=== PATIENT | male | born 1975 | race Caucasian/White ===

== ENCOUNTER 2018-02-18 20:00 | Outpatient (REF) | payer MEDICAID, SELFPAY ==
[2018-02-18 20:35] LABS: ALT 81 U/L (12-78); AST 43 U/L (15-37); Albumin 3.7 g/dL (3.4-5.0); Alkaline Phosphatase 68 U/L (46-116); Anion Gap 7.3 mmol/L (3-11); BUN 17 mg/dL (7-18); Bilirubin, Total 0.7 mg/dL (0.2-1.0); CO2 29.7 mmol/L (21.0-32.0); CREATININE 0.92 mg/dL (0.70-1.30); Calcium 9.1 mg/dL (8.5-10.1); Chloride 102 mmol/L (98-107); Glucose 101 mg/dL (70-100); Potassium 4.1 mmol/L (3.5-5.1); Sodium 139 mmol/L (136-145); Total Protein 6.8 g/dL (6.4-8.2)
== END 2018-02-18 20:20 ==
LOC: NCHCN 20:00
PROVIDERS: PCP Nurse Practitioner Family; Visit Provider Registered Nurse
DX: I10 Essential (primary) hypertension (principal); F10.10 Alcohol abuse, uncomplicated
CPT/HCPCS: 80053

== ENCOUNTER 2018-11-22 11:40 | Outpatient (REF) | payer MEDICAID, SELFPAY ==
[2018-11-22 22:51] LABS: Abs Immature Grans 0.01 k/cumm (0.0-0.09); Absolute Basophil Count 0.02 k/cumm (0.0-0.2); Absolute Eosinophil Count 0.09 k/cumm (0.0-0.7); Absolute Lymphocyte Count 2.01 k/cumm (1.2-3.4); Absolute Monocyte Count 0.98 k/cumm (0.11-0.7); Absolute Neutrophil Count 4.86 k/cumm (1.2-6.7); Basophils % 0.3; Eosinophils % 1.1; HGB 15.6 g/dL (13.5-17.5); Immature Grans % 0.1; Lymphocytes % 25.2; Mean Corp. HGB Concentration 33.9 g/dL (32.0-36.0); Mean Corpuscular Hemoglobin 32.6 pg (27.0-33.0); Mean Corpuscular Volume 96.2 fL (80-95); Mean Platelet Volume 11.8 fL (8.0-11.0); Monocytes % 12.3; Platelet Count 234 x1000/uL (130-400); RBC 4.78 m/cumm (4.50-6.00); RBC Distribution Width 12.2 % (11.8-14.1); White Blood Cell Count 7.97 k/cumm (4.4-10.8)
[2018-11-22 22:57] LABS: TSH (W/Ref FT4) 0.97 uIU/mL (0.36-3.74)
[2018-11-22 23:36] LABS: ESR 8 mm/hr (0-15)
[2018-11-25 11:39] LABS: IgA 274 mg/dL (85-499); Interpretation SEE COMMENTS; Tissue Transglutaminase IgA 1.2 U/mL (<4.0)
== END 2018-11-22 12:00 ==
LOC: NCHCN 11:40
PROVIDERS: PCP Nurse Practitioner Family; Visit Provider Registered Nurse
DX: R19.7 Diarrhea, unspecified (principal)
CPT/HCPCS: 82784; 83516; 85652; 84443; 85025

== ENCOUNTER 2019-05-22 09:50 | Outpatient (REF) | payer MEDICAID, SELFPAY ==
[2019-05-22 22:06] LABS: ALT 161 U/L (16-63); AST 91 U/L (15-37); Alkaline Phosphatase 92 U/L (46-116); Anion Gap 9.9 mmol/L (3-11); BUN 12 mg/dL (7-18); Bilirubin, Total 0.6 mg/dL (0.2-1.0); CO2 26.1 mmol/L (21.0-32.0); CREATININE 0.69 mg/dL (0.70-1.30); Calcium 9.2 mg/dL (8.5-10.1); Chloride 103 mmol/L (98-107); Glucose 90 mg/dL (74-106); Potassium 4.5 mmol/L (3.5-5.1); Sodium 139 mmol/L (136-145); Total Protein 7.2 g/dL (6.4-8.2)
== END 2019-05-22 10:10 ==
LOC: NCHCN 09:50
PROVIDERS: PCP Nurse Practitioner Family; Visit Provider Registered Nurse
DX: I10 Essential (primary) hypertension (principal); R74.8 Abnormal levels of other serum enzymes; F10.10 Alcohol abuse, uncomplicated
CPT/HCPCS: 80053

== ENCOUNTER 2019-11-22 21:18 | Outpatient (REF) | payer MEDICAID, SELFPAY ==
[2019-11-22 20:47] LABS: Abs Immature Grans 0.06 10^3/uL (0.0-0.06); Absolute Basophil Count 0.04 10^3/uL (0.0-0.2); Absolute Eosinophil Count 0.11 10^3/uL (0.0-0.7); Absolute Lymphocyte Count 1.83 10^3/uL (1.2-3.4); Absolute Monocyte Count 0.98 10^3/uL (0.1-0.8); Absolute Neutrophil Count 6.61 10^3/uL (1.2-6.7); Basophils % 0.4; Eosinophils % 1.1; HCT 49.6 % (40.0-50.0); HGB 16.5 g/dL (13.5-17.5); Immature Grans % 0.6; MCH 32.9 pg (27.0-33.0); MCHC 33.3 % (32.0-36.0); MCV 98.8 fL (80-95); Monocytes % 10.2; Neutrophils % 68.7; Nucleated RBC 0 %; Platelet Count 242 10^3/uL (130-400); RBC 5.02 10^6/uL (4.36-5.78); RDW 11.8 % (11.8-14.1); RDW-SD 42.7 fL; WBC 9.63 10^3/uL (4.4-10.8)
[2019-11-22 21:10] LABS: ALT 120 U/L (16-63); AST 60 U/L (15-37); Albumin 4.1 g/dL (3.4-5.0); Alkaline Phosphatase 104 U/L (46-116); BUN 21 mg/dL (7-18); Bilirubin, Total 0.5 mg/dL (0.2-1.0); CREATININE 0.86 mg/dL (0.70-1.30); Calcium 9.8 mg/dL (8.5-10.1); Calculated LDL 145 mg/dL (<100); Chloride 105 mmol/L (98-107); Cholesterol 253 mg/dL (<200); Glucose 101 mg/dL (74-106); HDL Cholesterol 41 mg/dL (40-60); Potassium 4.4 mmol/L (3.5-5.1); Sodium 140 mmol/L (136-145); Total Protein 7.5 g/dL (6.4-8.2); Triglyceride 336 mg/dL (<150)
[2019-11-22 21:19] LABS: ESR 14 mm/hr (0-15)
[2019-11-27 11:59] LABS: IgA 303 mg/dL (85-499); Interpretation (See Note); Tissue Transglutaminase IgA <1.2 U/mL (<4.0)
== END 2019-11-22 21:38 ==
LOC: NCHCN 21:18
PROVIDERS: PCP Nurse Practitioner Family; Visit Provider Registered Nurse
DX: R74.8 Abnormal levels of other serum enzymes (principal); E78.5 Hyperlipidemia, unspecified; I10 Essential (primary) hypertension
CPT/HCPCS: 80053; 80061; 82784; 83516; 85652; 84443; 85025

== ENCOUNTER 2021-01-13 08:22 | Outpatient (REF) | payer MEDICAID, SELFPAY ==
[2021-01-13 14:31] LABS: ALT 154 U/L (16-63); AST 102 U/L (15-37); Albumin 3.7 g/dL (3.4-5.0); Alkaline Phosphatase 83 U/L (46-116); Anion Gap 7.4 mmol/L (3-11); BUN 17 mg/dL (7-18); Bilirubin, Total 0.8 mg/dL (0.2-1.0); CO2 28.6 mmol/L (21.0-32.0); CREATININE 0.8 mg/dL (0.70-1.30); Calcium 8.8 mg/dL (8.5-10.1); Calculated LDL 146 mg/dL (<100); Chloride 102 mmol/L (98-107); Cholesterol 237 mg/dL (<200); Glucose 88 mg/dL (74-106); HDL Cholesterol 56 mg/dL (40-60); Hemoglobin A1C 5.4 % (<5.7); Potassium 4.6 mmol/L (3.5-5.1); Sodium 138 mmol/L (136-145); Total Protein 7.2 g/dL (6.4-8.2); Triglyceride 176 mg/dL (<150)
== END 2021-01-13 08:23 | disposition home or self-care (01) ==
LOC: NCHCN 08:22
PROVIDERS: PCP Nurse Practitioner Family; Visit Provider Registered Nurse
DX: E78.5 Hyperlipidemia, unspecified (principal); R74.8 Abnormal levels of other serum enzymes; F10.10 Alcohol abuse, uncomplicated; Z13.1 Encounter for screening for diabetes mellitus
CPT/HCPCS: 80053; 80061; 83036

== ENCOUNTER 2021-01-17 08:55 | Outpatient (REF) | payer MEDICAID, SELFPAY ==
[2021-01-17 14:22] LABS: Abs Immature Grans 0.02 10^3/uL (0.0-0.06); Absolute Basophil Count 0.03 10^3/uL (0.0-0.2); Absolute Eosinophil Count 0.14 10^3/uL (0.0-0.7); Absolute Lymphocyte Count 1.89 10^3/uL (1.2-3.4); Absolute Monocyte Count 0.96 10^3/uL (0.1-0.8); Basophils % 0.4; Eosinophils % 1.8; HCT 48.7 % (40.0-50.0); HGB 16.6 g/dL (13.5-17.5); Immature Grans % 0.3; Lymphocytes % 24.4; MCH 33.4 pg (27.0-33.0); MCHC 34.1 % (32.0-36.0); MPV 11.6 fL (8.0-11.0); Monocytes % 12.4; Neutrophils % 60.7; Nucleated RBC 0 %; Platelet Count 214 10^3/uL (130-400); RBC 4.97 10^6/uL (4.36-5.78); RDW 11.8 % (11.8-14.1); RDW-SD 42.8 fL; WBC 7.74 10^3/uL (4.4-10.8)
[2021-01-17 15:08] LABS: Iron 190 ug/dL (65-175); Total Iron Binding Capacity 296 ug/dL (250-450)
[2021-01-17 15:43] LABS: Ferritin > 2000 ng/mL (26-388)
== END 2021-01-17 08:56 | disposition home or self-care (01) ==
LOC: NCHCN 08:55
PROVIDERS: PCP Nurse Practitioner Family; Visit Provider Registered Nurse
DX: I10 Essential (primary) hypertension (principal); R74.8 Abnormal levels of other serum enzymes; R19.7 Diarrhea, unspecified
CPT/HCPCS: 82728; 83540; 83550; 85025

== ENCOUNTER 2022-01-30 16:35 | Outpatient (REF) | payer MEDICAID, SELFPAY ==
[2022-01-30 18:19] LABS: ALT 169 U/L (16-63); AST 139 U/L (15-37); Alkaline Phosphatase 93 U/L (46-116); Anion Gap 9.5 mmol/L (3-11); BUN 10 mg/dL (7-18); CO2 26.5 mmol/L (21.0-32.0); CREATININE 0.8 mg/dL (0.70-1.30); Calcium 9.5 mg/dL (8.5-10.1); Calculated LDL 153 mg/dL (<100); Chloride 99 mmol/L (98-107); Cholesterol 250 mg/dL (<200); Estimated GFR 109.85 (mL/min/1.73m2); Glucose 92 mg/dL (74-106); HDL Cholesterol 56 mg/dL (40-60); Potassium 4.2 mmol/L (3.5-5.1); Sodium 135 mmol/L (136-145); Total Protein 8.1 g/dL (6.4-8.2); Triglyceride 209 mg/dL (<150); Vitamin B12 396 pg/mL (193-986)
[2022-02-02 09:56] LABS: Hepatitis C Ab w Rflx HCV PCR Negative (Negative)
== END 2022-01-30 16:36 | disposition home or self-care (01) ==
LOC: NCHCN 16:35
PROVIDERS: PCP Nurse Practitioner Family; Visit Provider Registered Nurse
DX: K76.0 Fatty (change of) liver, not elsewhere classified (principal); E78.5 Hyperlipidemia, unspecified; K21.9 Gastro-esophageal reflux disease without esophagitis; Z72.89 Other problems related to lifestyle; Z11.59 Encounter for screening for other viral diseases
CPT/HCPCS: 80053; 80061; 86803; 82607; 83735

== ENCOUNTER 2022-12-11 09:06 | Outpatient (REF) | payer MEDICAID, SELFPAY ==
[2022-12-11 15:34] LABS: HCT 47.2 % (40.0-50.0); MCHC 33.9 % (32.0-36.0); MCV 100 fL (80-95); MPV 11.4 fL (8.0-11.0); Platelet Count 165 10^3/uL (130-400); RDW 11.9 % (11.8-14.1); RDW-SD 44.5 fL; WBC 7.23 10^3/uL (4.4-10.8)
[2022-12-11 16:11] LABS: ALT 165 U/L (16-63); AST 160 U/L (15-37); Albumin 3.7 g/dL (3.4-5.0); Alkaline Phosphatase 126 U/L (46-116); Anion Gap 10.6 mmol/L (3-11); BUN 11 mg/dL (7-18); Bilirubin, Total 0.9 mg/dL (0.2-1.0); CO2 23.4 mmol/L (21.0-32.0); CREATININE 0.8 mg/dL (0.70-1.30); Calcium 9.2 mg/dL (8.5-10.1); Calculated LDL 135 mg/dL (<100); Chloride 103 mmol/L (98-107); Cholesterol 257 mg/dL (<200); Estimated GFR 109.17 (mL/min/1.73m2); Glucose 108 mg/dL (74-106); HDL Cholesterol 49 mg/dL (40-60); Potassium 4.1 mmol/L (3.5-5.1); Sodium 137 mmol/L (136-145); Triglyceride 366 mg/dL (<150)
[2022-12-11 18:17] LABS: GGT 1355 U/L (15-85)
== END 2022-12-11 09:07 | disposition home or self-care (01) ==
LOC: NCHCN 09:06
PROVIDERS: PCP Family Medicine; Visit Provider Family Medicine
DX: I10 Essential (primary) hypertension (principal); K76.0 Fatty (change of) liver, not elsewhere classified; R74.8 Abnormal levels of other serum enzymes; E78.5 Hyperlipidemia, unspecified
CPT/HCPCS: 80053; 80061; 85027; 82977

== ENCOUNTER 2024-12-11 14:30 | Outpatient (REF) | payer MEDICAID, SELFPAY | END 2024-12-11 14:31 | disposition home or self-care (01) | LOC: NCHCN 14:30 | PROVIDERS: PCP Family Medicine; Visit Provider Family Medicine | DX: J02.9 Acute pharyngitis, unspecified (principal) | CPT/HCPCS: 87070 ==